=== PATIENT | female | born 1985 | race Asian ===

== ENCOUNTER 2017-01-04 03:27 | Inpatient (IN) | payer OTHER, MEDICAID ==
[2017-01-04] MEDS ORDERED: Oxytocin in LR* 20 UNITS/1,000 ML BAG IVPB ONE (06:51)
[2017-01-04] MEDS ORDERED: Oxytocin in LR* 20 UNITS/1,000 ML BAG IVPB SCH ×2 (07:00→08:42)
[2017-01-04 07:50] LABS: Hematocrit 39 % (35-47); Hemoglobin 12.7 g/dl (12.0-16.0); Mean Corpuscular HGB Conc 32 g/dl (31-36); Mean Corpuscular Hemoglobin 26 pg (27-31); Mean Corpuscular Volume 80 fL (80-97); Mean Platelet Volume 11 um3 (7.4-10.4); Red Cell Distribution Width 17 % (10.5-15); White Blood Count 11.2 10^3/ul (3.5-10.8)
[2017-01-04] MEDS ORDERED: Acetaminophen TAB* 325 MG PO PRN (08:40)
[2017-01-04] MEDS ORDERED: Glycerin ADULT SUPP PR PRN (08:40)
[2017-01-04] MEDS ORDERED: Witch Hazel PAD* JAR TOPICAL PRN (08:40)
[2017-01-04] MEDS ORDERED: Dibucaine 1% 28.35 GM TUBE PR PRN (08:40)
[2017-01-04] MEDS: Ibuprofen TAB* 600 MG PO PRN ×2 (08:51→18:41)
[2017-01-04] MEDS: Docusate CAP* 100 MG PO SCH ×3 (19:54→21:57)
[2017-01-05 08:10] VITALS: BP 126/79
[2017-01-05 08:12] LABS: Hematocrit 38 % (35-47); Hemoglobin 12.3 g/dl (12.0-16.0); Mean Corpuscular HGB Conc 32 g/dl (31-36); Mean Corpuscular Hemoglobin 26 pg (27-31); Mean Corpuscular Volume 81 fL (80-97); Mean Platelet Volume 10 um3 (7.4-10.4); Red Blood Count 4.71 10^6/ul (4.0-5.4); Red Cell Distribution Width 17 % (10.5-15); White Blood Count 10.5 10^3/ul (3.5-10.8)
[2017-01-05] MEDS: Ibuprofen TAB* 600 MG PO PRN (08:21)
[2017-01-05] MEDS: Docusate CAP* 100 MG PO SCH (08:21)
[2017-01-05] MEDS ORDERED: Influenza VAC *QUAD* 2017-18* 0.5 ML SYRINGE IM ONE (09:00)
[2017-01-05] MEDS ORDERED: Ferrous Gluconate TAB* 324 MG TAB PO SCH (09:00)
== END 2017-01-05 13:32 | disposition home or self-care (01) | DRG 775 ==
LOC: MCHOBOUT 03:27 → MCHOB 04:05
PROVIDERS: ADMIT Nurse Practitioner; ATTEND Midwife
PROC: 10E0XZZ Delivery of Products of Conception, External Approach (ICD-10-PCS; principal; 2017-01-04)
PROC: 10907ZC Drainage of Amniotic Fluid, Therapeutic from Products of Conception, Via Natural or Artificial Opening (ICD-10-PCS; 2017-01-04)
PROC: 4A1HXCZ Monitoring of Products of Conception, Cardiac Rate, External Approach (ICD-10-PCS; 2017-01-04)
PROC: 3E0234Z Introduction of Serum, Toxoid and Vaccine into Muscle, Percutaneous Approach (ICD-10-PCS; 2017-01-05)
DX: O77.0 Labor and delivery complicated by meconium in amniotic fluid (principal); Z23 Encounter for immunization; Z37.0 Single live birth; Z3A.38 38 weeks gestation of pregnancy
CPT/HCPCS: 36415; 85025; 85027; 86850; 86900; 86901; 90686; A9270-GY

== ENCOUNTER 2017-08-27 11:56 | Emergency (ER) | payer OTHER, MEDICAID ==
[2017-08-27 12:37] VITALS: BP 120/82
--- NOTE | 2017-08-27 13:25 | UC ---
Skin Complaint HPI - HPI Summary HPI Summary: 31 y/o female presents to the urgent care c/o Rt shoulder blade w/ a tick bite since Monday08/25/2017. Pt felt tired, fatigue and weak yesterday. Pt has Hx of tick bite 5 years ago. Pt removed tick and brought it w/ her. She is not sure how long it was on her skin. Pt is concerned w/ Lyme disease. Pt denies fever, COTTON, SOB, chest pain, abdominal pain, N/V/D - History of Current Complaint Chief Complaint: UCSkin Time Seen by Provider: 08/27/17 13:24 Stated Complaint: TICK BITE Hx Obtained From: Patient ?: No Onset/Duration: Gradual Onset, Lasting Days - 2 days, Still Present, Worse Since - yesterday Skin Exposure Onset/Duration: Days Ago - 2 days Timing: Constant Onset Severity: Mild Current Severity: Mild Pain Intensity: 2 Pain Scale Used: 0-10 Numeric Location: Discrete - RT scapula Character: Redness Aggravating Factor(s): Touch Alleviating Factor(s): Other - removed tick Associated Signs & Symptoms: Positive: Weakness, Rash. Negative: Fever, Chills Related History: Possible Reaction to: Insect - Allergy/Home Medications Allergies/Adverse Reactions: Allergies Allergy/AdvReac Type Severity Reaction Status Date / Time No Known Allergies Allergy Verified 04/04/13 20:28 Review of Systems Constitutional: Fatigue Skin: Rash - Rt scapula w/ tick bite rash Eyes: Negative ENT: Negative Respiratory: Negative Cardiovascular: Negative Gastrointestinal: Negative Genitourinary: Negative Motor: Negative Neurovascular: Negative Musculoskeletal: Negative Neurological: Weakness Psychological: Negative Is Patient Immunocompromised?: No All Other Systems Reviewed And Are Negative: Yes PMH/Surg Hx/FS Hx/Imm Hx Previously Healthy: Yes Respiratory History: Asthma - Surgical History Surgical History: None - Family History Known Family History: Positive: Respiratory Disease - asthma - Social History Occupation: Employed Full-time Lives: With Family Alcohol Use: None Substance Use Type: None Smoking Status (MU): Never Smoked Tobacco - Immunization History Most Recent Influenza Vaccination: counseled Most Recent Tetanus Shot: 02/06/13 Most Recent Pneumonia Vaccination: none Physical Exam - Summary Physical Exam Summary: Vital Signs Reviewed: Yes General: well developed, well nourished female sitting in the examining table w/ o any apparent distress. Eyes: Positive: Conjunctiva Clear - PERRLA, EOMI ENT: Positive: Normal ENT inspection, Hearing grossly normal, Pharynx normal, TMs normal Neck: Positive: Supple, Nontender, No Lymphadenopathy Respiratory: Positive: Chest nontender, Lungs clear, Normal breath sounds Cardiovascular: Positive: RRR, No Murmur, Pulses Normal Abdomen Description: Positive: Nontender, No Organomegaly, Soft. Negative: CVA Tenderness (R), CVA Tenderness (L) Bowel Sounds: Positive: Present Musculoskeletal: Positive: Strength Intact, ROM Intact, No Edema Neurological Exam: Normal Psychological Exam: Normal Skin: Positive: rashes - Lateral side of the RT scapula with tick bite with surrounding erythema, non tender to palpation. tick no longer present, no swelling or drainage observed. Triage Information Reviewed: Yes Vital Signs: Initial Vital Signs Temp 98.1 F 08/27/17 12:34 Pulse 87 08/27/17 12:34 Resp 18 08/27/17 12:34 BP 120/82 08/27/17 12:34 Pulse Ox 99 08/27/17 12:34 Course/Dx - Course Course Of Treatment: 31 y/o female presents to the urgent care c/o Rt shoulder blade w/ a tick bite since Monday08/25/2017. Pt felt tired, fatigue and weak yesterday. Pt has Hx of tick bite 5 years ago. Pt removed tick and brought it w / her. She is not sure how long it was on her skin. Pt is concerned w/ Lyme disease. Pt denies fever, COTTON, SOB, chest pain, abdominal pain, N/V/D. Hx obtained. Pt w/ a tick bite on Rt lateral side of scapula on examination. Antibiotic prophylaxis with Doxycycline given to the patient to prevent lyme Disease.. Pt tolerated well medication. Pt advised to observe the area for the development or Erythema Migrans for upto 30 days following exposure. Advised if he develops fever or erythema Migrans to return to the clinic or PCP for further treatment .D/C instructions explained. Pt understood and agreed with plan of care. - Differential Diagnoses - Skin Complaint Differential Diagnoses: Cellulitis, Local Allergic Reaction, Scabies, Tick Born Illness, Urticaria - Diagnoses Provider Diagnoses: 1- Rt scapula tick bite Discharge - Sign-Out/Discharge Documenting (check all that apply): Discharge/Admit/Transfer - D/C home - Discharge Plan Condition: Stable Disposition: HOME Patient Education Materials: Tick Bite (ED) Referrals: Gama CARDENAS,Gilles Perez [Medical Doctor] - If Needed Jose Ramirez MD [Primary Care Provider] - 2 Weeks Additional Instructions: 1- Please observe the area for the development or Erythema Migrans for upto 30 days following exposure. Components of the tick saliva can cause transient erythema that should not be confused with Erythema Migrans. If you develop the bull's eye rash, fever, joint pains please return to the urgent care or f/u with your PCP for further management. 2-Antibiotic prophylaxis with Doxycycline was given to you today to prevent lyme Disease. Lyme serology can be drawn in 2 weeks with your PCP to r/o Lyme disease since there is probability of negative results at early exposure. - Billing Disposition and Condition Condition: STABLE Disposition: HOME
[2017-08-27] MEDS ORDERED: DOXYcycline CAP(*) 100 MG PO ONE (13:42)
== END 2017-08-27 13:52 | disposition home or self-care (01) ==
LOC: UCEAST 11:56
DX: S40.261A Insect bite (nonvenomous) of right shoulder, initial encounter (principal); W57.XXXA Bitten or stung by nonvenomous insect and other nonvenomous arthropods, initial encounter; Y93.9 Activity, unspecified; Y92.9 Unspecified place or not applicable; R53.83 Other fatigue; J45.909 Unspecified asthma, uncomplicated
CPT/HCPCS: 99212; A9270-GY; G0463

== ENCOUNTER 2018-12-28 13:57 | Emergency (ER) | payer OTHER, MEDICAID ==
[2018-12-28 14:05] VITALS: BP 119/74
--- NOTE | 2018-12-28 14:07 | UC ---
UC General HPI - HPI Summary HPI Summary: 33 yo female presents with diffuse joint pain, fatigue, and intermittent headaches for the last 3 weeks. She tells me that 3.5 weeks ago she was bitten by a tick to her right posterior knee - she removed this as she did not think it was attached long. Since that time she has been having the above symptoms. She is concerned about lyme disease. She never saw a rash. She denies sinus symptoms, cough, SOB, chest pain, abdominal pain, n/v. - History of Current Complaint Chief Complaint: UCGeneralIllness Stated Complaint: JOINT PAIN Time Seen by Provider: 12/28/18 14:07 Hx Obtained From: Patient Hx Last Menstrual Period: 12/09/18 Onset/Duration: Sudden Onset Onset Severity: Moderate Current Severity: Moderate Pain Intensity: 7 - Allergy/Home Medications Allergies/Adverse Reactions: Allergies Allergy/AdvReac Type Severity Reaction Status Date / Time No Known Allergies Allergy Verified 12/28/18 14:05 PMH/Surg Hx/FS Hx/Imm Hx - Additional Past Medical History Additional PMH: None - Surgical History Surgical History: None - Family History Known Family History: Positive: Respiratory Disease - asthma - Social History Lives: With Family Alcohol Use: None Substance Use Type: None Smoking Status (MU): Never Smoked Tobacco - Immunization History Most Recent Influenza Vaccination: counseled Most Recent Tetanus Shot: 02/06/13 Most Recent Pneumonia Vaccination: none Review of Systems All Other Systems Reviewed And Are Negative: No Constitutional: Positive: Negative Skin: Positive: Other - Tick bite Respiratory: Positive: Negative Cardiovascular: Positive: Negative Neurovascular: Positive: Negative Musculoskeletal: Positive: Other: - Joint pain Neurological: Positive: Negative Psychological: Positive: Negative Physical Exam - Summary Physical Exam Summary: GENERAL: NAD. WDWN. No pain distress. SKIN: No rashes, sores, ulcers, masses, lesions. HEENT: Head: AT/NC. Eyes: PERRLA. EOM intact. Conjunctiva clear without inflammation or discharge. Ears: Hearing grossly normal. TMs intact, no bulging, erythema, or edema. Nose: Nasal mucosa pink and moist. NTTP maxillary and frontal sinus. Throat: Posterior oropharynx without exudates, erythema, or tonsillar enlargement. Uvula midline. NECK: Supple. Nontender. FROM CHEST: CTAB. No r/r/w. No accessory muscle use. Breathing comfortably and in no distress. CV: RRR. Without m/r/g. Pulses intact. Brisk cap refill. ABDOMEN: Soft. NTTP. Bowel sounds present MSK: FROM in B/L UEs and LEs with symmetric strength. NEURO: A&Ox3. 3 word recall, remote, recent memory, ability to follow 2-step directions, and attention intact. CN: II: Peripheral lundberg intact. Vision normal. III, IV, : EOMI. No nystagmus. PERRLA. V: Sensations intact and symmetric. Opens mouth and clenches teeth. VII: No facial asymmetry. Forehead wrinkles. Grins, shuts eyes, frowns, puffs cheeks. VIII: Hearing intact to finger rub. IX, X: Swallows and coughs. Uvula midline. XI: Shrugs shoulders. Turns head against resistance. XII: No tongue deviation [id number] are intact. Gait with normal base. Romberg: maintains balance, no pronator drift. Normal speech. No facial drooping. PSYCH: Age appropriate behavior. Triage Information Reviewed: Yes Vital Signs: Initial Vital Signs Temp 98 F 12/28/18 14:01 Pulse 86 12/28/18 14:01 Resp 16 12/28/18 14:01 BP 119/74 12/28/18 14:01 Pulse Ox 100 12/28/18 14:01 Laboratory Tests 12/28/18 12/28/18 14:16 14:18 POC Urine Color Yellow POC Urine Clarity Clear POC Urine pH 5.5 POC Ur Specif [place] 1.010 POC Urine Protein Negative POC Ur Glucose (UA) Negative POC Urine Ketones Negative POC Urine Blood Negative POC Urine Nitrite Negative POC Urine Bilirubin Negative POC Urine Urobilinogen 0.2 POC U Leukocyte Esteras Negative POC Ur Test Negative Vital Signs Reviewed: Yes Course/Dx - Course Course Of Treatment: Exam WNL. Discussed that lyme disease testing will likely be negative given that tick bite was 3 weeks ago and lab testing generally requires 4-6 weeks to turn positive. She prefers to start treatment with doxycycline today and if testing is negative , but she is feeling better - will continue anbx. If testing is negative and she has no change of symptoms will f/u with PCP. - Diagnoses Provider Diagnosis: Tick bite, Joint pain Discharge ED - Sign-Out/Discharge Documenting (check all that apply): Patient Departure All imaging exams completed and their final reports reviewed: No Studies - Discharge Plan Condition: Stable Disposition: HOME Prescriptions: DOXYcycline CAP(*) [DOXYcycline 100MG CAP(*)] 100 mg PO BID #28 cap Patient Education Materials: Lyme Disease (ED), Musculoskeletal Pain (ED) Referrals: Rina Starr MD [Primary Care Provider] - Additional Instructions: If you develop a fever, shortness of breath, chest pain, new or worsening symptoms - please call your PCP or go to the ED immediately. If your symptoms do not improve with the antibiotic for lyme disease - please be rechecked by your primary doctor - Billing Disposition and Condition Condition: STABLE Disposition: Home
--- NOTE | 2018-12-30 17:42 | UC ---
- Progress Note Progress Note: Please inform patient that lyme is negative, should continue treatment due to symptoms as discussed with JOHN Larkin at visit. -Vani James. PAC Course/Dx - Diagnoses Provider Diagnoses: Tick bite, Joint pain Discharge ED - Sign-Out/Discharge Documenting (check all that apply): Patient Departure All imaging exams completed and their final reports reviewed: No Studies - Discharge Plan Condition: Stable Disposition: HOME Prescriptions: DOXYcycline CAP(*) [DOXYcycline 100MG CAP(*)] 100 mg PO BID #28 cap Patient Education Materials: Lyme Disease (ED), Musculoskeletal Pain (ED) Referrals: Rina Starr MD [Primary Care Provider] - Additional Instructions: If you develop a fever, shortness of breath, chest pain, new or worsening symptoms - please call your PCP or go to the ED immediately. If your symptoms do not improve with the antibiotic for lyme disease - please be rechecked by your primary doctor - Billing Disposition and Condition Condition: STABLE Disposition: Home
== END 2018-12-28 14:54 | disposition home or self-care (01) ==
LOC: UCEAST 13:57
DX: S80.261A Insect bite (nonvenomous), right knee, initial encounter (principal); W57.XXXA Bitten or stung by nonvenomous insect and other nonvenomous arthropods, initial encounter; Y92.9 Unspecified place or not applicable; R51 Headache; R53.83 Other fatigue; M25.50 Pain in unspecified joint; Z32.02 Encounter for pregnancy test, result negative
CPT/HCPCS: 36415; 81003; 84702; 86618; 99212; G0463

== ENCOUNTER 2021-02-02 09:57 | Inpatient (IN) ==
[2021-02-02 13:29] LABS: ABS Lymphocytes 1.1 10^3/ul (1.0-4.8); ABS Monocytes 1.3 10^3/ul (0-0.8); ABS Neutrophils 12.3 10^3/ul (1.5-7.7); Eosinophil % 0.1 %; Hematocrit 38 % (35-47); Hemoglobin 12.5 g/dL (12.0-16.0); Lymphocyte % 7.2 %; Mean Corpuscular HGB Conc 33 g/dL (31-36); Mean Corpuscular Hemoglobin 26 pg (27-31); Mean Corpuscular Volume 79 fL (80-97); Mean Platelet Volume 10.3 fL (7.4-10.4); Platelet Count 213 10^3/uL (150-450); Red Blood Count 4.85 10^6 /uL (3.70-4.87); Red Cell Distribution Width 15 % (10-15); White Blood Count 14.7 10^3/uL (3.5-10.8)
[2021-02-02 13:55] LABS: HCG Pregnancy < 0.60 mIU/mL
[2021-02-02 14:03] LABS: ALT 18 U/L (7-52); AST 13 U/L (13-39); Albumin 3.9 g/dL (3.2-5.2); Alkaline Phosphatase 119 U/L (35-149); Anion Gap 9 mmol/L (2-11); Blood Urea Nitrogen 7 mg/dL (6-24); C Reactive Protein 366.18 mg/L (<8.01); CO2 Carbon Dioxide 28 mmol/L (22-32); Calcium 9.3 mg/dL (8.6-10.3); Chloride 99 mmol/L (101-111); Globulin 4.1 g/dL (2-4); Glucose 146 mg/dL (70-100); Potassium 3.4 mmol/L (3.5-5.0); Sodium 136 mmol/L (135-145)
[2021-02-02] MEDS ORDERED: NS 0.9% 1000 ml BAG 1,000 ML IV ONE (15:48)
[2021-02-02] MEDS ORDERED: Ondansetron 4 mg VIAL 2 MG/ML 2 ml VIAL IV ONE (15:48)
[2021-02-02] MEDS ORDERED: Iohexol 300 (CONTRAST) 10 ML SDV IV ONE (15:57)
[2021-02-02] MEDS ORDERED: Piperacillin/Tazobac ADVAN 3.375 GM in NS 0.9% 100 ml BAG 100 ML IV ONE ×2 (16:02→22:00)
[2021-02-02] MEDS ORDERED: Iodixanol (CONTRAST) 320 MG/ML 100 ML SDV IV ONE (16:41)
[2021-02-02 17:32] LABS: Urine Appearance Cloudy; Urine Bilirubin Negative (Negative); Urine Blood Negative (Negative); Urine Color Yellow; Urine Glucose Negative (Negative); Urine Ketones Trace (Negative); Urine Nitrite Negative (Negative); Urine Protein 1+(30 mg/dL) (Negative); Urine Urobilinogen Negative (Negative)
[2021-02-02 17:35] LABS: Urine Bacteria 1+ (Absent); Urine Red Blood Cell 1+(3-5/hpf) (Absent); Urine Squamous Epithelial Cell Present (Absent); Urine White Blood Cell 2+(11-20/hpf) (Absent)
[2021-02-02] MEDS ORDERED: Ondansetron 4 mg VIAL 2 MG/ML 2 ml VIAL IV PRN (19:07)
[2021-02-02 19:50] LABS: Magnesium 1.9 mg/dL (1.9-2.7)
[2021-02-02] MEDS ORDERED: Zosyn per Pharmacy NOTE FOLLOW UP SCH (20:00)
[2021-02-02] MEDS: Lactated Ringers 1000 ml BAG 1,000 ML IV SCH ×2 (21:33→22:50)
[2021-02-02 22:12] LABS: Rapid COVID-19 Molecular Undetected (Undetected)
[2021-02-03] MEDS: ZOSYN 3.375 GM Q8H per EXTENDED INFUSION IV SCH ×2 (03:01→10:08)
[2021-02-03 05:41] LABS: Hematocrit 31 % (35-47); Hemoglobin 10.1 g/dL (12.0-16.0); Mean Corpuscular HGB Conc 32 g/dL (31-36); Mean Corpuscular Hemoglobin 26 pg (27-31); Mean Corpuscular Volume 79 fL (80-97); Mean Platelet Volume 10.7 fL (7.4-10.4); Platelet Count 181 10^3/uL (150-450); Red Blood Count 3.97 10^6 /uL (3.70-4.87); Red Cell Distribution Width 15 % (10-15); White Blood Count 13.2 10^3/uL (3.5-10.8)
[2021-02-03 06:02] LABS: Calcium 8.3 mg/dL (8.6-10.3); Magnesium 1.9 mg/dL (1.9-2.7)
[2021-02-03 06:08] LABS: ABS Lymphocytes 1.1 10^3/ul (1.0-4.8); ABS Monocytes 1.8 10^3/ul (0-0.8); ABS Neutrophils 10.3 10^3/ul (1.5-7.7); Eosinophil % 0.2 %; Nucleated Red Blood Cells % 0.1
[2021-02-03] MEDS ORDERED: Potassium Chlor 20 meq TAB.ER PO ONE (06:12)
[2021-02-03] MEDS ORDERED: Magnesium Sulfate 2 gm BAG 2 GM/50 ML BAG IVPB ONE (06:13)
[2021-02-03] MEDS: Meropenem 1 GM PREMIX(*) 1 GM/50 ML BAG IV SCH (17:22)
[2021-02-03] MEDS: Potassium Chloride LIQUID 20 MEQ/15 ML LIQUID PO SCH ×2 (21:58→22:09)
[2021-02-03] MEDS: Potassium Chlor 20 meq TAB.ER PO SCH (23:02)
[2021-02-04] MEDS: Meropenem 1 GM PREMIX(*) 1 GM/50 ML BAG IV SCH ×2 (02:48→09:11)
[2021-02-04 05:31] LABS: Hematocrit 32 % (35-47); Hemoglobin 10.7 g/dL (12.0-16.0); Mean Corpuscular HGB Conc 33 g/dL (31-36); Mean Corpuscular Hemoglobin 26 pg (27-31); Mean Corpuscular Volume 79 fL (80-97); Platelet Count 222 10^3/uL (150-450); Red Blood Count 4.12 10^6 /uL (3.70-4.87); Red Cell Distribution Width 15 % (10-15); White Blood Count 8.8 10^3/uL (3.5-10.8)
[2021-02-04 05:55] LABS: Calcium 8.6 mg/dL (8.6-10.3); Magnesium 1.9 mg/dL (1.9-2.7); Potassium 3.9 mmol/L (3.5-5.0)
[2021-02-04] MEDS: Potassium Chlor 20 meq TAB.ER PO SCH (07:28)
[2021-02-04] MEDS ORDERED: Buffered Lidocaine 1% SYRIN 1 ml INTRADERM ONE (10:17)
[2021-02-04 14:49] VITALS: BP 123/78
== END 2021-02-04 15:47 | disposition home or self-care (01) | DRG 872 ==
LOC: ED 09:57 → SUATTDRO 19:01 → MEDTELE 19:01
PROVIDERS: ADMIT Internal Medicine; ATTEND Student in an Organized Health Care Education/Training Program